=== PATIENT | female | born 1950 | race Caucasian/White ===

== ENCOUNTER 2017-03-16 07:31 | Emergency (ER) | payer OTHER ==
[~2017-03-16] VITALS: Ht 149.9 cm; Wt 63.5 kg
--- NOTE | ~2017-03-16 | EKG ---
[place] [address] [facility] [place] [address] ELECTROCARDIOGRAM REPORT Name: WISESPEEDY Room #: [facility]P [facility] [id number] Admission: 03/16/17 Attend Phys: Discharge: 03/16/17 Date of : 48 Report #: [id number] THIS REPORT FOR: //name// [facility] ED Test Date: 2017-03-16 Test Time: 07:43:50 Pat Name: SPEEDY WISE Department: Room: Gender: F Mis Specialist: [facility] : 1950 Requested By: Katya Baxter Order Number: [id number] MD: Alessio Polk Measurements Intervals [place] Rate: 81 P: 3 VA: 139 QRS: -36 QRSD: 89 T: 122 QT: 365 QTc: 424 Interpretive Statements Sinus rhythm LVH with secondary repolarization abnormality No previous ECG available for comparison Electronically Signed On 03-16-2017 15:02:23 [employer] by Alessio Polk [email or web address] <ELECTRONICALLY SIGNED> By: Alessio Polk MD 03/16/17 1502 0743 0743 Alessio Polk MD /YAMIL
[2017-03-16] MEDS ORDERED: ACTONEL 35 MG35 M1 PO (07:43)
[2017-03-16] MEDS ORDERED: MYFORTIC360 MG PO (07:43)
[2017-03-16] MEDS ORDERED: LOPRESSOR50 PO (07:44)
[2017-03-16] MEDS ORDERED: PROGRAF0.5 MG PO (07:44)
[2017-03-16] MEDS ORDERED: ASPIR 8181 MG PO (07:44)
[2017-03-16] MEDS ORDERED: PREDNISONE 5 MG5 M1 PO (07:44)
[2017-03-16] MEDS ORDERED: ERGOCALCIF50000 UNIT PO (07:45)
[2017-03-16] MEDS ORDERED: NOVOLOG FL100 UNIT/M (07:45)
[2017-03-16] MEDS ORDERED: LANTUS100 UNIT/M SUBQ (07:45)
[2017-03-16] MEDS ORDERED: AMLODIPINE BESY10 MG PO (07:45)
[2017-03-16] MEDS ORDERED: BETIMOL5 ML (07:46)
[2017-03-16] MEDS ORDERED: LIPITOR 20 MG T20 M1 PO (07:46)
[2017-03-16 08:54] LABS: ABSOLUTE NEUTROPHILS 9.6 thou/uL (1.4-8.2); BASOPHILS 0.5 % (0.0-2.0); EOSINOPHILS 0.3 % (0.0-3.0); HEMATOCRIT 38.3 % (37.0-47.0); HEMOGLOBIN 12.3 gm/dL (12.0-15.0); MCH 27.1 pg (26.0-34.0); MCHC 32.3 g/dL (28.0-37.0); MONOCYTES 6.8 % (1.0-8.0); PLATELET COUNT 286 thou/uL (150-400); POLYS 81.4 % (36.0-66.0); RBC 4.55 mil/uL (4.20-5.00); RDW 14.6 % (10.5-14.5); WBC 11.8 thou/uL (4.0-11.0)
[2017-03-16 09:09] LABS: ANION GAP 11 mmol/L (7-16); BUN 11 mg/dL (7-18); CALCIUM 9.5 mg/dL (8.5-10.1); CHLORIDE 103 mmol/L (98-107); CO2 24 mmol/L (21-32); CREATININE 0.8 mg/dL (0.6-1.0); GLUCOSE 145 mg/dL (74-106); POTASSIUM 3.5 mmol/L (3.5-5.1); SODIUM 138 mmol/L (136-145)
[2017-03-16 09:18] LABS: TROPONIN-I < 0.04 ng/mL (<0.06)
== END 2017-03-16 10:07 | disposition home or self-care (01) ==
LOC: ER 07:31
PROVIDERS: Emergency Medicine
DX: I10 Essential (primary) hypertension (principal); R51 Headache; Z98.890 Other specified postprocedural states

== ENCOUNTER 2018-04-07 12:44 | Emergency (ER) | payer OTHER ==
[~2018-04-07] VITALS: Ht 149.9 cm; Wt 61.7 kg
[~2018-04-07 12:44] MED LIST: ACTONEL 35 MG35 M1 PO; AMLODIPINE BESY10 MG PO; ASPIR 8181 MG PO; BETIMOL5 ML; ERGOCALCIF50000 UNIT PO; LANTUS100 UNIT/M SUBQ; LIPITOR 20 MG T20 M1 PO; LOPRESSOR50 PO; MYFORTIC360 MG PO; NOVOLOG FL100 UNIT/M; PREDNISONE 5 MG5 M1 PO; PROGRAF0.5 MG PO
[2018-04-07] MEDS ORDERED: VALIUM5 MG PO (14:37)
[2018-04-07 15:39] VITALS: BP 155/76
== END 2018-04-07 15:40 | disposition home or self-care (01) ==
LOC: ER 12:44
DX: S39.012A Strain of muscle, fascia and tendon of lower back, initial encounter (principal); Z94.0 Kidney transplant status; W01.0XXA Fall on same level from slipping, tripping and stumbling without subsequent striking against object, initial encounter; Y93.89 Activity, other specified; Y92.89 Other specified places as the place of occurrence of the external cause; Y99.8 Other external cause status